=== PATIENT | female | born 1960 | race Caucasian/White ===

== ENCOUNTER 2024-09-17 12:36 | Outpatient (CLI) | payer OTHER, SELFPAY ==
--- NOTE | ~2024-09-17 | CT_ITS ---
CT Scan of the Chest without Contrast: Clinical Indication: Lung nodule, pleural scarring Technique: Contiguous sections were acquired throughout the chest without intravenous contrast. Dose reduction technique was used on this scan by utilizing automated exposure control and iterative recon struction technique. The dose-length product (DLP) was 275.27 mGy-cm. Findings: There is no evidence of any significant mediastinal, hilar or axillary lymphadenopathy. The mediastin al soft tissues appear normal. There is no evidence of pleural or pericardial effusion. The lungs are clear. No pulmonary nodules or infiltrates are noted. Calcified right basilar pleural p laque present. Images through the upper abdomen reveal no abnormalities. Impression: Calcified right basilar pleural plaque. No other significant pulmonary abnormality. Reviewed, dictated and finalized at location . [employer] Impression: Calcified right basilar pleural plaque. No other significant pulmonary abnormal ity.
== END 2024-09-17 12:37 | disposition home or self-care (01) ==
LOC: MICIMG 12:41
PROVIDERS: PCP Internal Medicine Infectious Disease
DX: J92.9 Pleural plaque without asbestos (principal); R93.89 Abnormal findings on diagnostic imaging of other specified body structures
CPT/HCPCS: 71250